=== PATIENT | female | born 1995 | race Caucasian/White ===

== ENCOUNTER → 2020-09-24 | Outpatient (CLI) | payer BC, OTHER ==
[~2020-09-24] MED LIST: NONE PER PT
== END | disposition home or self-care (01) ==
LOC: STAR 08:44
PROVIDERS: ATTEND Orthopaedic Surgery
DX: Z20.828 Contact with and (suspected) exposure to other viral communicable diseases (principal); M25.552 Pain in left hip; M24.152 Other articular cartilage disorders, left hip
CPT/HCPCS: 87635

== ENCOUNTER 2020-09-30 05:23 | Day surgery (SDC) | payer BC, OTHER ==
[~2020-09-30] VITALS: Ht 170.2 cm; Wt 91.0 kg
[2020-09-30] MEDS ORDERED: CHLORHEXIDINE 15 ML UDC ONE (06:00)
[2020-09-30] MEDS ORDERED: LACTATED RINGERS 1,000 ML IV SCH (06:00)
[2020-09-30] MEDS ORDERED: CHLORHEXIDINE 15 ML UDC MM ONE (06:00)
[2020-09-30] MEDS ORDERED: NONE PER PT (06:17)
[2020-09-30 06:23] LABS: HCG UR SG 1.018 (1.003-1.030)
[2020-09-30] MEDS ORDERED: ROPIvacaine/PF 0.5%, 30 ML ONE (06:27)
[2020-09-30] MEDS ORDERED: EPINEPHRINE 1 MG/ML, 1ML ONE (06:28)
[2020-09-30] MEDS ORDERED: MIDAZOLAM 1 MG/ML, 2ML ONE (06:32)
[2020-09-30] MEDS ORDERED: EPINEPHRINE TOPICAL SOLN 1 MG/ML, 30ML ONE (06:33)
[2020-09-30] MEDS ORDERED: FENTANYL PF 100 MCG/2ML ONE ×2 (06:33→09:32)
[2020-09-30] MEDS ORDERED: DEXAMETHASONE 4 MG/ML, 1ML ONE (06:55)
[2020-09-30] MEDS ORDERED: ONDANSETRON 2MG/ML, 2ML ONE (06:55)
[2020-09-30] MEDS ORDERED: PROPOFOL 10 MG/ML, 20ML ONE (06:55)
[2020-09-30] MEDS ORDERED: ROCURONIUM 10 MG/ML,10ML ONE (06:55)
[2020-09-30] MEDS ORDERED: NEOSTIGMINE 1 MG/ML, 10ML ONE (06:55)
[2020-09-30] MEDS ORDERED: GLYCOPYRROLATE 0.2MG/1ML, 5ML ONE (06:55)
[2020-09-30] MEDS ORDERED: SUCCINYLCHOLINE 20 MG/ML, 10ML ONE (06:55)
[2020-09-30] MEDS ORDERED: CEFAZOLIN 1,000 MG ONE (06:55)
[2020-09-30] MEDS ORDERED: MEPERIDINE/PF 25MG/0.5ML IVPush PRN (07:00)
[2020-09-30] MEDS ORDERED: METHOCARBAMOL 1,000 MG in DEXTROSE 5% 100 ML IV PRN (07:00)
[2020-09-30] MEDS ORDERED: PROMETHAZINE 25 MG/ML, 1ML IVPush PRN (07:00)
[2020-09-30] MEDS ORDERED: KETOROLAC 30 MG/1 ML IVPush PRN (07:00)
[2020-09-30] MEDS ORDERED: HYDROmorphone 1 MG/ML, 1ML INJ IVPush PRN (07:00)
[2020-09-30] MEDS ORDERED: HYDROcodone/APAP 7.5-325MG/15ML UDC PO PRN (07:00)
[2020-09-30] MEDS ORDERED: FENTANYL PF 100 MCG/2ML IV PRN (07:00)
[2020-09-30] MEDS ORDERED: OXYcodone 5 MG/5 ML ORAL.SOL UDC PO PRN (07:00)
[2020-09-30] MEDS ORDERED: MEPERIDINE/PF 25MG/ML,1ML ONE (09:27)
[2020-09-30] MEDS ORDERED: KETOROLAC 30 MG/1 ML ONE (09:31)
[2020-09-30] MEDS ORDERED: OXYcodone 5 MG/5 ML ORAL.SOL UDC ONE (09:32)
== END 2020-09-30 11:10 | disposition home or self-care (01) ==
LOC: OUT 05:23
PROVIDERS: ATTEND Orthopaedic Surgery
DX: M25.552 Pain in left hip (principal); M21.852 Other specified acquired deformities of left thigh; M24.152 Other articular cartilage disorders, left hip; M65.852 Other synovitis and tenosynovitis, left thigh; Z72.89 Other problems related to lifestyle
CPT/HCPCS: 29914; 29916; 73501; 81025; C1713; J0330; J0690; J1100; J1885; J2175; J2250; J2405; J2704; J2710; J2795; J7120; 76000; J0171; J3010